=== PATIENT | male | born 1970 | race Caucasian/White ===

== ENCOUNTER 2018-08-04 00:49 | Emergency (ER) | payer BC ==
[~2018-08-04] VITALS: Ht 188 cm; Wt 127.0 kg
[2018-08-04] MEDS ORDERED: IBUP800 PO (01:21)
== END 2018-08-04 02:04 | disposition home or self-care (01) ==
LOC: ER 00:49
DX: R10.9 Unspecified abdominal pain (principal); R61 Generalized hyperhidrosis; J00 Acute nasopharyngitis [common cold]; T40.2X5A Adverse effect of other opioids, initial encounter; T39.1X5A Adverse effect of 4-Aminophenol derivatives, initial encounter; Z88.5 Allergy status to narcotic agent
CPT/HCPCS: 99282

== ENCOUNTER 2018-11-15 00:51 | Emergency (ER) | payer OTHER ==
[~2018-11-15] VITALS: Ht 188 cm; Wt 129.3 kg
[~2018-11-15 00:51] MED LIST: IBUP800 PO
[2018-11-15] MEDS ORDERED: Norco 5-325 Ta1 EACH PO (02:19)
[2018-11-15] MEDS ORDERED: Naprosyn500 MG PO (02:20)
== END 2018-11-15 03:12 | disposition home or self-care (01) ==
LOC: ER 00:51
DX: S82.301A Unspecified fracture of lower end of right tibia, initial encounter for closed fracture (principal); W23.0XXA Caught, crushed, jammed, or pinched between moving objects, initial encounter; Z88.5 Allergy status to narcotic agent
CPT/HCPCS: 29515; 73590; 73610; 99283-25; A9270-GY

== ENCOUNTER 2019-01-23 07:35 | Day surgery (SDC) | payer OTHER ==
[~2019-01-23 07:35] MED LIST changes: +Naprosyn500 MG PO; +Norco 5-325 Ta1 EACH PO
== END 2019-01-23 23:00 | disposition home or self-care (01) ==
LOC: WOUND 07:35
DX: L97.319 Non-pressure chronic ulcer of right ankle with unspecified severity (principal); S82.241D Displaced spiral fracture of shaft of right tibia, subsequent encounter for closed fracture with routine healing; E66.01 Morbid (severe) obesity due to excess calories; Z88.5 Allergy status to narcotic agent
CPT/HCPCS: 87071; 87075; 87077; 87147; 87186; 87205; G0463

== ENCOUNTER 2019-01-29 13:15 | Day surgery (SDC) | payer OTHER | END 2019-01-29 23:34 | disposition home or self-care (01) | LOC: WOUND 13:15 | DX: L97.312 Non-pressure chronic ulcer of right ankle with fat layer exposed (principal); E66.01 Morbid (severe) obesity due to excess calories; Z88.5 Allergy status to narcotic agent | CPT/HCPCS: G0463 ==

== ENCOUNTER 2019-02-05 13:17 | Day surgery (SDC) | payer OTHER | END 2019-02-05 22:40 | disposition home or self-care (01) | LOC: WOUND 13:17 | DX: L97.312 Non-pressure chronic ulcer of right ankle with fat layer exposed (principal); E66.01 Morbid (severe) obesity due to excess calories; Z68.38 Body mass index [BMI] 38.0-38.9, adult | CPT/HCPCS: G0463 ==

== ENCOUNTER 2019-02-12 00:36 | Day surgery (SDC) | payer OTHER | END 2019-02-12 22:42 | disposition home or self-care (01) | LOC: WOUND 00:36 | DX: L97.312 Non-pressure chronic ulcer of right ankle with fat layer exposed (principal); E66.01 Morbid (severe) obesity due to excess calories; Z68.38 Body mass index [BMI] 38.0-38.9, adult | CPT/HCPCS: G0463 ==

== ENCOUNTER 2019-02-19 01:00 | Day surgery (SDC) | payer OTHER | END 2019-02-19 22:38 | disposition home or self-care (01) | LOC: WOUND 01:00 | DX: L97.319 Non-pressure chronic ulcer of right ankle with unspecified severity (principal); S82.841D Displaced bimalleolar fracture of right lower leg, subsequent encounter for closed fracture with routine healing; E66.01 Morbid (severe) obesity due to excess calories | CPT/HCPCS: G0463 ==

== ENCOUNTER 2019-02-26 00:25 | Day surgery (SDC) | payer OTHER | END 2019-02-26 22:34 | disposition home or self-care (01) | LOC: WOUND 00:25 | DX: L97.319 Non-pressure chronic ulcer of right ankle with unspecified severity (principal); S82.841D Displaced bimalleolar fracture of right lower leg, subsequent encounter for closed fracture with routine healing; E66.01 Morbid (severe) obesity due to excess calories | CPT/HCPCS: G0463 ==

== ENCOUNTER 2019-03-05 00:32 | Day surgery (SDC) | payer OTHER | END 2019-03-05 22:38 | disposition home or self-care (01) | LOC: WOUND 00:32 | DX: L97.319 Non-pressure chronic ulcer of right ankle with unspecified severity (principal); S82.841D Displaced bimalleolar fracture of right lower leg, subsequent encounter for closed fracture with routine healing; E66.01 Morbid (severe) obesity due to excess calories | CPT/HCPCS: G0463 ==

== ENCOUNTER 2019-03-22 20:56 | Emergency (ER) | payer SELFPAY ==
[~2019-03-22] VITALS: Ht 188 cm; Wt 127.0 kg
[2019-03-22] MEDS ORDERED: CYCL10 PO (22:21)
[2019-03-22] MEDS ORDERED: HYDR1TAB94 PO (22:21)
== END 2019-03-22 22:30 | disposition home or self-care (01) ==
LOC: ER 20:56
DX: S16.1XXA Strain of muscle, fascia and tendon at neck level, initial encounter (principal); X58.XXXA Exposure to other specified factors, initial encounter; Z88.5 Allergy status to narcotic agent
CPT/HCPCS: 72040; 99283-25; A9270

== ENCOUNTER 2025-03-07 10:05 | Observation (INO) | payer OTHER ==
[~2025-03-07] VITALS: Ht 190.5 cm; Wt 148.3 kg
[~2025-03-07 10:05] MED LIST changes: +AMOCLA875 PO; +CYCL10 PO; +HYDR1TAB94 PO
[2025-03-07] MEDS ORDERED: ASPI81CH PO (10:30)
[2025-03-07 10:38] LABS: BASOPHILS ABSOLUTE AUTO 0.01 K/mm3 (0.00-0.23); BASOPHILS PERCENT AUTO 0 % (0-2); EOSINOPHILS ABSOLUTE AUTO 0.07 K/mm3 (0.00-0.68); EOSINOPHILS PERCENT AUTO 1 % (0-6); Hematocrit 41.0 % (37.0-53.0); Hemoglobin 13.7 g/dL (13.5-17.5); IMMATURE GRAN ABSOLUTE AUTO 0.02 K/mm3 (0.00-0.10); IMMATURE GRAN PERCENT AUTO 0 % (0-1); LYMPHOCYTES ABSOLUTE AUTO 1.11 K/mm3 (0.84-5.20); LYMPHOCYTES PERCENT AUTO 18 % (21-46); MONOCYTES ABSOLUTE AUTO 0.53 K/mm3 (0.16-1.47); MONOCYTES PERCENT AUTO 8 % (4-13); Mean Corpuscular HGB Conc 33.4 g/dL (31.5-36.5); Mean Corpuscular Volume 81 fL (80-100); NEUTROPHILS ABSOLUTE AUTO 4.62 K/mm3 (1.96-9.15); NEUTROPHILS PERCENT AUTO 73 % (41-73); NRBC ABSOLUTE 0.00 K/mm3 (0.00-0.02); NRBC Auto 0.0 /100 WBC (0.0-0.2); Platelet Count 233 K/mm3 (150-400); RDW Coefficient Variation 13.8 % (11.7-14.2); RDW Standard Deviation 39.9 fL (35.1-46.3)
[2025-03-07 11:02] LABS: Alanine Aminotransfer (ALT/SGP 40.0 U/L (12-78); Albumin, Blood 3.5 g/dL (3.4-5.0); Albumin/Globulin Ratio 0.9 (0.8-1.8); Anion Gap 7.0 mmol/L (3-11); Aspartate Aminotrans (AST/SGOT 31.0 U/L (12-37); Bilirubin, Total 0.7 mg/dL (0.1-1.0); Blood Urea Nitrogen 17.0 mg/dL (8-24); CO2, Blood 30.0 mmol/L (21-32); Calcium, Blood 8.9 mg/dL (8.5-10.1); Chloride, Blood 104.0 mmol/L (98-108); Creatinine, Blood 1.02 mg/dL (0.60-1.20); Globulin, Blood 4.0 g/dL (2.2-4.0); Glucose, Blood 105.0 mg/dL (70-99); Potassium, Blood 4.2 mmol/L (3.5-5.5); Sodium, Blood 137.0 mmol/L (136-145); Total Protein, Blood 7.5 g/dL (6.4-8.2)
[2025-03-07 12:50] LABS: CHOL/HDL RATIO 4.2; Cholesterol 175 mg/dL (50-200); HDL Cholesterol 42 mg/dL (>39); LDL/HDL RATIO 2.6; Low Density Lipoprotein Chol 111 mg/dL (0-110); Triglycerides 112 mg/dL (30-160); Very Low Density Lipoprot Chol 22 mg/dL (6-32)
[2025-03-07] MEDS ORDERED: Labetalol HCL 5 MG/ML 4ML Injection (Single Dose) IV PRN (13:25)
[2025-03-07 14:55] VITALS: BP 166/110
[2025-03-07] MEDS ORDERED: Furosemide 10 MG / ML 2ML Vial IV SCH (15:00)
[2025-03-07] MEDS ORDERED: MULTI-VITAMIN1 EAC2 PO (15:07)
[2025-03-07 17:00] VITALS: BP 144/106
--- NOTE | 2025-03-07 18:48 | NUR ---
report received from ER pt is very pleasent, a/o x 4 ind in room no c/o pain no \distress since this morning. admission done. labs drawn, call light within reach.
[2025-03-07 20:28] VITALS: BP 135/95
--- NOTE | 2025-03-08 04:35 | NUR ---
[facility] SUMMARY PT A&OX3, VSS, EXCEPT ELEAVTED BP AND LOW PULSE OX IN LOW 80S WHEN ASLEEP. PT UP INDEPENDENTLY IN ROOM AND USES CALL LIGHT APPROPRIATELY. PT PLEASANT AND COOPERATIVE W/ CARE. PT HAS BEEN ASLEEP FOR MOST OF THE NIGHT W/ SLEEP STUDY ONGOING TO QUALIFY FOR CPAP. CHEST RISE/RESPIRATIONS NOTED. PT SATS >=95% WHEN AWAKE, BUT DIPS INTO THE LOW 80S WHEN ASLEEP. PLACED ON 2L O2 VIA NC. DR CARRILLO AND RT NOTIFIED. RT OKAY WITH PT SATING IN LOW 80S D/T ONGOING SLEEP STUDY. PT REMAINS ON STRICT I&O AND TELE. SR AT 81 W/ BBB. BED RAILS UP X 2, BED IN LOWEST POSITION, BED WHEELS LOCKED, PERSONAL BELONGINGS AND CALL LIGHT WITHIN REACH FOR SAFETY.
[2025-03-08 06:05] VITALS: BP 159/101
[2025-03-08 07:26] VITALS: BP 148/98
[2025-03-08 07:34] LABS: BASOPHILS ABSOLUTE AUTO 0.03 K/mm3 (0.00-0.23); BASOPHILS PERCENT AUTO 1 % (0-2); EOSINOPHILS ABSOLUTE AUTO 0.10 K/mm3 (0.00-0.68); EOSINOPHILS PERCENT AUTO 2 % (0-6); Hematocrit 41.4 % (37.0-53.0); Hemoglobin 13.7 g/dL (13.5-17.5); IMMATURE GRAN ABSOLUTE AUTO 0.02 K/mm3 (0.00-0.10); IMMATURE GRAN PERCENT AUTO 0 % (0-1); LYMPHOCYTES ABSOLUTE AUTO 1.26 K/mm3 (0.84-5.20); LYMPHOCYTES PERCENT AUTO 19 % (21-46); MONOCYTES ABSOLUTE AUTO 0.45 K/mm3 (0.16-1.47); MONOCYTES PERCENT AUTO 7 % (4-13); Mean Corpuscular HGB Conc 33.1 g/dL (31.5-36.5); Mean Corpuscular Volume 82 fL (80-100); NEUTROPHILS ABSOLUTE AUTO 4.66 K/mm3 (1.96-9.15); NEUTROPHILS PERCENT AUTO 72 % (41-73); NRBC ABSOLUTE 0.00 K/mm3 (0.00-0.02); NRBC Auto 0.0 /100 WBC (0.0-0.2); Platelet Count 227 K/mm3 (150-400); RDW Coefficient Variation 14.0 % (11.7-14.2); RDW Standard Deviation 40.7 fL (35.1-46.3)
[2025-03-08 08:04] LABS: Alanine Aminotransfer (ALT/SGP 36.0 U/L (12-78); Albumin, Blood 3.2 g/dL (3.4-5.0); Albumin/Globulin Ratio 0.9 (0.8-1.8); Anion Gap 7.0 mmol/L (3-11); Aspartate Aminotrans (AST/SGOT 25.0 U/L (12-37); Bilirubin, Total 1.0 mg/dL (0.1-1.0); Blood Urea Nitrogen 18.0 mg/dL (8-24); CO2, Blood 30.0 mmol/L (21-32); Calcium, Blood 8.7 mg/dL (8.5-10.1); Chloride, Blood 104.0 mmol/L (98-108); Creatinine, Blood 1.11 mg/dL (0.60-1.20); Globulin, Blood 3.7 g/dL (2.2-4.0); Glucose, Blood 109.0 mg/dL (70-99); Magnesium, Blood 2.2 mg/dL (1.6-2.4); Potassium, Blood 3.9 mmol/L (3.5-5.5); Sodium, Blood 137.0 mmol/L (136-145); Total Protein, Blood 6.9 g/dL (6.4-8.2)
[2025-03-08] MEDS ORDERED: Enoxaparin 40 MG/0.4 ML SYR SC SCH (09:00)
[2025-03-08 10:51] VITALS: BP 139/120
[2025-03-08] MEDS ORDERED: LOSARTAN-HCTZ1 EACH PO (14:34)
--- NOTE | 2025-03-08 16:33 | NUR ---
PT DISCHARGED WITH DC INSTRUCTIONS AT 1610- PLANS TO GO TO [facility] TOMORROW TO ESTABLISH A PCP. WHEELCHAIR ESCORT OUT TO CAR.
== END 2025-03-08 16:13 | disposition home or self-care (01) ==
LOC: ER 10:05 → MEDS 10:06
PROVIDERS: Emergency Medicine; ADMIT Internal Medicine
DX: R06.09 Other forms of dyspnea (principal); I11.0 Hypertensive heart disease with heart failure; I50.9 Heart failure, unspecified; E66.9 Obesity, unspecified; Z68.37 Body mass index [BMI] 37.0-37.9, adult; Z79.82 Long term (current) use of aspirin; Z88.5 Allergy status to narcotic agent
CPT/HCPCS: 36415; 71045; 80053; 80061; 83735; 83880; 84484; 85025; 93005; 93010; 93306; 94762; 96372; 96374; 96375; 96376; 99285-25; A9270; G0378; J1650; J1938